=== PATIENT | male | born 1970 | race Caucasian/White ===

== ENCOUNTER 2018-03-13 23:41 | Emergency (ER) | payer BC ==
[~2018-03-13] VITALS: Ht 170.2 cm; Wt 70.8 kg
--- NOTE | 2018-03-14 00:25 | NUR ---
TO ER BED 9 C/O SOB AND SUBSTERNAL CHEST PAIN X 5 DAYS. AA/OX4. 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 SPEAKING FULL SENTENCES. SKIN PINK, WARM,DRY. NO/N/V/D. LUNGS CLEAR. MOVES ALL EXTREMITIES WELL. AMBULATED TO BED WITH STABLE GAIT. NAD. VSS. WILL CONTINUE TO MONITOR.
[2018-03-14] MEDS: ONDANSETRON HCL/PF 4 MG/2 ML VIAL IVP ONE (00:30)
[2018-03-14] MEDS ORDERED: ONDANSETRON HCL/PF 4 MG/2 ML VIAL ONE (00:31)
[2018-03-14] MEDS ORDERED: HYDROCODONE/APAP 5/325MG 1 EACH TABLET ONE (00:31)
[2018-03-14] MEDS ORDERED: NITROGLYCERIN PACKET 1 GM PACKET ONE (00:32)
[2018-03-14] MEDS ORDERED: ASPIRIN 81 MG TAB.CHEW ONE (00:32)
[2018-03-14] MEDS: HYDROCODONE/APAP 5/325MG 1 EACH TABLET PO ONE (00:37)
[2018-03-14] MEDS: ASPIRIN 81 MG TAB.CHEW PO ONE (00:37)
[2018-03-14] MEDS: NITROGLYCERIN PACKET 1 GM PACKET TD ONE (00:38)
[2018-03-14] MEDS ORDERED: IV NS 0.9% 250 ML IV ONE (00:40)
[2018-03-14] MEDS ORDERED: CT SWABBABLE VALVE TRANS SET 1 EA INFUS.SET MC ONE (00:40)
[2018-03-14] MEDS ORDERED: IOHEXOL-350 100 ML VIAL IV ONE (00:40)
[2018-03-14 00:48] LABS: BASOPHILS % (AUTO) 0.2 % (0.0-2.0); EOSINOPHILS % (AUTO) 1.4 % (0.0-6.0); HEMATOCRIT 42 % (39-51); HEMOGLOBIN 13.9 g/dL (13.5-17.5); LYMPHOCYTES # (AUTO) 1.9 /CMM (0.8-4.8); MEAN CORPUSCULAR HGB CONC 34 g/dl (31.0-36.0); MEAN CORPUSCULAR VOLUME 94 fL (80-96); MONOCYTES # (AUTO) 0.5 /CMM (0.1-1.30); MONOCYTES % (AUTO) 9.4 % (2.0-12.0); NEUTROPHILS # (AUTO) 2.5 /CMM (1.8-8.9); PLATELET COUNT (AUTO) 220 /CMM (150-450); RDW COEFFICIENT OF VARIATION 12.8 (11.5-15.0); RED BLOOD CELL COUNT(AUTO) 4.44 MIL/uL (4.5-6.0); WHITE BLOOD COUNT (AUTO) 4.9 K/uL (4.3-11.0)
[2018-03-14 00:57] LABS: CALCIUM, SERUM 8.6 mg/dL (8.5-10.1); CARBON DIOXIDE 28 mmol/L (21-32); CHLORIDE 102 mmol/L (98-107); CREATININE 0.8 mg/dL (0.6-1.3); GLUCOSE 94 mg/dL (74-106); POTASSIUM 3.1 mmol/L (3.5-5.1); SODIUM SERUM 141 mmol/L (136-145); UREA NITROGEN, BLOOD 5 mg/dL (7-18)
[2018-03-14 01:01] LABS: INR 0.96 (0.87-1.13)
[2018-03-14 01:04] LABS: TROPONIN I < 0.017 ng/mL (0.00-0.056)
[2018-03-14 01:09] LABS: ALANINE AMINOTRANSFERASE 43 U/L (12-78); ALBUMIN 3.5 g/dL (3.4-5.0); ALKALINE PHOSPHATASE 98 U/L (46-116); ASPARTATE AMINOTRANSFERASE 61 U/L (15-37); B-TYPE NATRIURETIC PEPTIDE 32 PG/ML (0-125); BILIRUBIN,DIRECT 0.2 mg/dL (0.0-0.2); BILIRUBIN,TOTAL 0.4 mg/dL (0.2-1.0); TOTAL PROTEIN, SERUM 7.3 g/dL (6.4-8.2)
--- NOTE | 2018-03-14 01:43 | NUR ---
PT REFUSED CT, RISK AND BENEFITS EXPLAINED X3. PT STRONGLY REFUSED. DR. TRIANA MADE AWARE
--- NOTE | 2018-03-14 01:54 | NUR ---
Patient is resting comfortably in bed with eyes closed. Easily aroused. VSS
[2018-03-14] MEDS ORDERED: POTASSIUM CHLORIDE 20 MEQ TAB.PRT.SR PO ONE (01:56)
[2018-03-14] MEDS: POTASSIUM CHLORIDE 20 MEQ TAB.PRT.SR PO ONE (01:58)
--- NOTE | 2018-03-14 04:14 | NUR ---
Patient discharged to home in stable condition. Written and verbal after care instructions given. Patient verbalizes understanding of instruction. IV removed. Catheter intact and site benign. Pressure and 4x4 applied to site. No bleeding noted. AMBULATED WITH STEADY GAIT. INSTRUCTED NOT TO DRIVE OR OPERATE HEAVY MACHINERY.
[2018-03-14 04:16] VITALS: BP 126/70
== END 2018-03-14 04:17 | disposition home or self-care (01) ==
LOC: ER 23:44
DX: R07.89 Other chest pain (principal); F10.20 Alcohol dependence, uncomplicated; Z60.2 Problems related to living alone
CPT/HCPCS: 36415; 71045; 80048; 80076; 83880; 84484 ×2; 85025; 85730; 93005; 96374; 99285; A4606; J2405; J7050; Q9967; Z7610

== ENCOUNTER 2018-05-26 13:57 | Emergency (ER) | payer BC, OTHER ==
[~2018-05-26] VITALS: Ht 165.1 cm; Wt 68.0 kg
[2018-05-26] MEDS ORDERED: LORAZEPAM 1 MG TABLET PO ONE (14:30)
[2018-05-26] MEDS ORDERED: LORAZEPAM 1 MG TABLET ONE (14:34)
--- NOTE | 2018-05-26 14:44 | NUR ---
[employer] OFFICERS, PT C/O SOB, POSS ANXIETY ATTACK. PT HYPERVENTILATING, SEEN & EVAL'D BY DR. MEIER. MEDICATED FOR ANXIETY, PT TOMAS WELL. STONE HARRIS @ BS & WILL CONT TO MONITOR.
--- NOTE | 2018-05-26 15:11 | NUR ---
Patient discharged to home in stable condition. Written and verbal after care instructions given. Patient verbalizes understanding of instruction.
[2018-05-26 15:12] VITALS: BP 118/75
== END 2018-05-26 15:14 ==
LOC: ER 13:58
DX: R07.89 Other chest pain (principal); Z60.2 Problems related to living alone
CPT/HCPCS: 71045; 93005; 99283; A4606; Z7610